=== PATIENT | male | born 1960 | race Two or more races ===

== ENCOUNTER 2018-01-24 19:09 | Emergency (ER) | payer OTHER ==
[~2018-01-24] VITALS: Ht 177.8 cm; Wt 65.0 kg
[2018-01-24 19:12] VITALS: BP 108/76
[2018-01-24] MEDS ORDERED: SODIUM CHLORIDE 0.9% 1,000 ML IV ONE (19:47)
== END 2018-01-24 20:50 | disposition left against medical advice (07) ==
LOC: ER 19:12
DX: Z53.21 Procedure and treatment not carried out due to patient leaving prior to being seen by health care provider (principal)
CPT/HCPCS: 99283; J7030

== ENCOUNTER 2018-04-25 18:23 | Inpatient (IN) | payer OTHER ==
[~2018-04-25] VITALS: Ht 172.7 cm; Wt 49.4 kg
[2018-04-25] MEDS ORDERED: SODIUM CHLORIDE 0.9% 1000ML BAG (SEPSIS BOLUS) IV ONE (19:30)
[2018-04-25] MEDS ORDERED: FOLIC ACID 1 MG, THIAMINE HCL 100 MG, MVI, ADULT NO.1 10 ML in DEXTROSE 5% WATER 1,000 ML IV ONE ×4 (19:30)
[2018-04-25] MEDS ORDERED: LEVOFLOXACIN 750MG PREMIX 150 ML IV ONE (19:30)
[2018-04-25] MEDS ORDERED: LORAZEPAM 2MG/ML CPJ IV ONE (19:30)
[2018-04-25] MEDS ORDERED: ACETAMINOPHEN 325MG TABLET PO ONE (19:30)
[2018-04-25] MEDS ORDERED: ACETAMINOPHEN 500MG TABLET PO NR (19:45)
[2018-04-25 19:51] LABS: HEMATOCRIT. 40.5 % (42.0-52.0); MEAN CORPUSCULAR VOLUME 95.6 fL (80.0-94.0); MEAN PLATELET VOLUME 10.1 fl (7.4-10.4); PLATELET 131 x1000/uL (130-400); RED BLOOD CELL COUNT 4.23 mill/uL (4.7-6.1); RED CELL DISTRIBUTION WIDTH 13.7 % (11.6-14.6)
[2018-04-25 19:56] LABS: CHLORIDE 87 mEq/L (98-107)
[2018-04-25 20:00] LABS: INR 1.1; PARTIAL THROMBOPLASTIN TIME 30.1 sec (23.4-31.0)
[2018-04-25 20:02] LABS: ETHANOL BLOOD < 10 mg/dL
[2018-04-25 20:56] LABS: PLATELET ESTIMATE NORMAL
[2018-04-25 21:13] LABS: CLARITY URINE CLOUDY (CLEAR); COLOR URINE YELLOW (YELLOW); KETONES URINE TRACE (NEGATIVE); LEUKOCYTE ESTERASE URINE 2+ (NEGATIVE); NITRITE URINE NEGATIVE (NEGATIVE); OCCULT BLOOD URINE 3+ (NEGATIVE); PROTEIN URINE 2+ (NEGATIVE); UROBILINOGEN URINE 0.2 E.U./dL (0.2-1.0)
[2018-04-25 21:46] LABS: METHADONE URINE SCREEN NEGATIVE (NEGATIVE); OPIATES URINE SCREEN NEGATIVE (NEGATIVE)
[2018-04-25 21:47] LABS: *AMPHETAMINES SCREEN URINE NEGATIVE (NEGATIVE); *BARBITURATES SCREEN URINE NEGATIVE (NEGATIVE); *BENZODIAZEPINES SCREEN URINE NEGATIVE (NEGATIVE); *COCAINE SCREEN URINE NEGATIVE (NEGATIVE); CANNABINOID URINE SCREEN NEGATIVE (NEGATIVE); PHENCYCLIDINE URINE SCREEN NEGATIVE (NEGATIVE)
[2018-04-25 23:44] VITALS: BP 111/77
[2018-04-25 23:46] VITALS: BP 111/77
[2018-04-26] MEDS ORDERED: ONDANSETRON HCL 4MG/2ML INJ IV PRN (00:45)
[2018-04-26] MEDS ORDERED: LORAZEPAM 2MG/ML CPJ IV PRN (00:45)
[2018-04-26] MEDS ORDERED: PIPERACILLIN/TAZ 3.375G PREMIX 50 ML IV SCH (03:00)
[2018-04-26] MEDS: PIPERACILLIN/TAZ 2.25G PREMIX 50 ML IV SCH ×4 (03:23→21:16)
[2018-04-26] MEDS: DEXT 5%/0.9% NACL 1,000 ML IV SCH ×3 (03:23→21:16)
[2018-04-26 04:00] VITALS: BP 98/65
[2018-04-26 07:30] VITALS: BP_SYST 100; BP_SYST 107; BP_SYST 118; BP_DIAS 73; BP_DIAS 79; BP_DIAS 81
[2018-04-26 07:34] LABS: HEMATOCRIT. 36.2 % (42.0-52.0); HEMOGLOBIN. 12.3 g/dL (14.0-18.0); MEAN CORPUSCULAR HEMOGLOBIN 32.4 pg (28.0-32.0); MEAN CORPUSCULAR VOLUME 95.4 fL (80.0-94.0); MEAN PLATELET VOLUME 8.6 fl (7.4-10.4); PLATELET 54 x1000/uL (130-400); RED BLOOD CELL COUNT 3.79 mill/uL (4.7-6.1); RED CELL DISTRIBUTION WIDTH 13.8 % (11.6-14.6)
[2018-04-26 08:00] VITALS: BP_SYST 100; BP_SYST 107; BP_SYST 118; BP_DIAS 73; BP_DIAS 79; BP_DIAS 81
[2018-04-26] MEDS: THIAMINE HCL 100MG TABLET PO SCH ×2 (08:37→17:28)
[2018-04-26] MEDS: ACETAMINOPHEN 325MG TABLET PO PRN (08:37)
[2018-04-26] MEDS: PANTOPRAZOLE SODIUM 40 MG/VIAL IV SCH (08:37)
[2018-04-26 10:02] LABS: PLATELET ESTIMATE MARKEDLY DECREASED
[2018-04-26 12:00] VITALS: BP 104/72
[2018-04-26] MEDS ORDERED: VANCOMYCIN 1 G PREMIX 200 ML IV NR (13:00)
[2018-04-26] MEDS: NICOTINE 7MG PATCH TD SCH (13:42)
[2018-04-26 16:00] VITALS: BP 129/82
[2018-04-26] MEDS: CHLORDIAZEPOXIDE 25MG CAPSULE PO SCH ×2 (17:28→23:32)
[2018-04-26] MEDS: MULTIVITAMINS,THER W-MINERALS TABLET PO SCH (17:28)
[2018-04-26] MEDS ORDERED: LORAZEPAM 2MG/ML CPJ IV NR (18:13)
[2018-04-26 20:00] VITALS: BP_SYST 102; BP_SYST 99; BP_DIAS 68; BP_DIAS 71
[2018-04-26 20:57] LABS: T4 FREE 1.4 ng/dL (0.76-1.46)
[2018-04-26 21:12] LABS: HEPATITIS B SURFACE ANTIGEN NEGATIVE
[2018-04-26 21:21] LABS: FERRITIN 1569 ng/mL (22-322)
[2018-04-26 21:42] LABS: HEPATITIS A AB IGM NEGATIVE (NEGATIVE)
[2018-04-27] VITALS (7 sets, daily range): BP systolic 96–128; BP diastolic 68–85
[2018-04-27] MEDS ORDERED: VANCOMYCIN 500 MG PREMIX 100 ML IV SCH (01:00)
[2018-04-27] MEDS: PIPERACILLIN/TAZ 2.25G PREMIX 50 ML IV SCH ×3 (02:44→14:42)
[2018-04-27] MEDS ORDERED: VANCOMYCIN 750 MG PREMIX 150 ML IV SCH (06:00)
[2018-04-27] MEDS: CHLORDIAZEPOXIDE 25MG CAPSULE PO SCH ×3 (06:31→21:19)
[2018-04-27 07:10] LABS: HEMATOCRIT 34.6 % (42.0-52.0); HEMOGLOBIN 11.8 g/dL (14.0-18.0); MEAN CORPUSCULAR HEMOGLOBIN 32.3 pg (28.0-32.0); MEAN CORPUSCULAR VOLUME 94.3 fL (80.0-94.0); PLATELET 55 x1000/uL (130-400); RED BLOOD CELL COUNT 3.67 mill/uL (4.7-6.1); RED CELL DISTRIBUTION WIDTH 13.8 % (11.6-14.6)
[2018-04-27] MEDS: DEXT 5%/0.9% NACL 1,000 ML IV SCH ×2 (09:12→13:36)
[2018-04-27] MEDS: PANTOPRAZOLE SODIUM 40 MG/VIAL IV SCH (09:13)
[2018-04-27] MEDS: MULTIVITAMINS,THER W-MINERALS TABLET PO SCH (09:13)
[2018-04-27] MEDS: NICOTINE 7MG PATCH TD SCH (09:13)
[2018-04-27] MEDS: FOLIC ACID 1MG TABLET PO SCH (09:13)
[2018-04-27] MEDS: THIAMINE HCL 100MG TABLET PO SCH (09:13)
[2018-04-27] MEDS: POTASSIUM CHLORIDE INJ 40 MEQ in DEXT 5% WATER 500 ML IV NR ×2 (13:33→14:48)
[2018-04-27] MEDS ORDERED: LEVOFLOXACIN 500MG PREMIX 100 ML IV SCH (15:45)
[2018-04-27] MEDS ORDERED: LEVOFLOXACIN 500MG PREMIX 100 ML IV NR (18:00)
[2018-04-28] VITALS: BP_SYST 115; BP_SYST 129; BP_DIAS 75; BP_DIAS 76
[2018-04-28] MEDS: DEXT 5%/0.9% NACL 1,000 ML IV SCH ×3 (02:40→17:44)
[2018-04-28 04:00] VITALS: BP 150/84
[2018-04-28] MEDS: CHLORDIAZEPOXIDE 25MG CAPSULE PO SCH ×3 (05:03→21:19)
[2018-04-28 07:48] LABS: HEMATOCRIT. 35.3 % (42.0-52.0); HEMOGLOBIN. 12.2 g/dL (14.0-18.0); MEAN CORPUSCULAR HEMOGLOBIN 32.8 pg (28.0-32.0); MEAN CORPUSCULAR VOLUME 94.9 fL (80.0-94.0); MEAN PLATELET VOLUME 9.5 fl (7.4-10.4); PLATELET 73 x1000/uL (130-400); RED BLOOD CELL COUNT 3.72 mill/uL (4.7-6.1); RED CELL DISTRIBUTION WIDTH 13.9 % (11.6-14.6)
[2018-04-28 08:00] VITALS: BP_SYST 120; BP_SYST 123; BP_SYST 129; BP_DIAS 80; BP_DIAS 82; BP_DIAS 84
[2018-04-28] MEDS: PANTOPRAZOLE SODIUM 40 MG/VIAL IV SCH (08:28)
[2018-04-28] MEDS: FERROUS SULFATE 325MG TABLET PO SCH ×3 (08:29→17:43)
[2018-04-28] MEDS: MULTIVITAMINS,THER W-MINERALS TABLET PO SCH (08:29)
[2018-04-28] MEDS: THIAMINE HCL 100MG TABLET PO SCH (08:29)
[2018-04-28] MEDS: NICOTINE 7MG PATCH TD SCH (08:29)
[2018-04-28] MEDS: FOLIC ACID 1MG TABLET PO SCH (08:29)
[2018-04-28 09:10] LABS: CHLORIDE 106 mEq/L (98-107)
[2018-04-28 11:51] LABS: PLATELET ESTIMATE DECREASED
[2018-04-28 12:00] VITALS: BP 127/80
[2018-04-28] MEDS ORDERED: POTASSIUM CHLORIDE 20MEQ TABLET SR PO NR (12:15)
[2018-04-28] MEDS: ACETAMINOPHEN 325MG TABLET PO PRN (12:34)
[2018-04-28 16:00] VITALS: BP 128/84
[2018-04-28] MEDS ORDERED: LORAZEPAM 2MG/ML CPJ IV PRN (16:45)
[2018-04-28] MEDS: LEVOFLOXACIN 250MG PREMIX 50 ML IV SCH (17:44)
[2018-04-28] MEDS: HYDROCODONE/ACETAMINOPHEN 5/325MG TABLET PO PRN (21:20)
[2018-04-28 23:38] LABS: VITAMIN B12 SERUM 1172 pg/mL (211-911)
[2018-04-29] VITALS: BP 113/73
[2018-04-29 04:00] VITALS: BP 154/91
[2018-04-29] MEDS: DEXT 5%/0.9% NACL 1,000 ML IV SCH (05:00)
[2018-04-29] MEDS: CHLORDIAZEPOXIDE 25MG CAPSULE PO SCH ×2 (05:00→13:59)
[2018-04-29 07:17] LABS: HEMATOCRIT 37.6 % (42.0-52.0); HEMOGLOBIN 12.7 g/dL (14.0-18.0); MEAN CORPUSCULAR HEMOGLOBIN 32.2 pg (28.0-32.0); MEAN CORPUSCULAR VOLUME 95.2 fL (80.0-94.0); PLATELET 111 x1000/uL (130-400); RED BLOOD CELL COUNT 3.95 mill/uL (4.7-6.1); RED CELL DISTRIBUTION WIDTH 14.3 % (11.6-14.6)
[2018-04-29 07:20] LABS: CHLORIDE 110 mEq/L (98-107)
[2018-04-29 08:00] VITALS: BP_SYST 128; BP_SYST 132; BP_DIAS 90; BP_DIAS 92
[2018-04-29] MEDS: FERROUS SULFATE 325MG TABLET PO SCH ×3 (08:55→18:46)
[2018-04-29] MEDS: FOLIC ACID 1MG TABLET PO SCH (08:55)
[2018-04-29] MEDS: THIAMINE HCL 100MG TABLET PO SCH (08:55)
[2018-04-29] MEDS: MULTIVITAMINS,THER W-MINERALS TABLET PO SCH (08:55)
[2018-04-29] MEDS: NICOTINE 7MG PATCH TD SCH (08:56)
[2018-04-29] MEDS: PANTOPRAZOLE SODIUM 40 MG/VIAL IV SCH (09:32)
[2018-04-29 12:00] VITALS: BP 132/80
[2018-04-29] MEDS: HYDROCODONE/ACETAMINOPHEN 5/325MG TABLET PO PRN (15:48)
[2018-04-29 16:00] VITALS: BP 145/85
[2018-04-29] MEDS: LEVOFLOXACIN 250MG PREMIX 50 ML IV SCH (17:24)
== END 2018-04-29 19:03 | DRG 720 ==
LOC: ER 18:23 → 7WST 22:11 → EDBEDREQ 22:14 → EDBEDREQTM 22:14 → ENRESERV 22:29
PROVIDERS: ADMIT Internal Medicine; ATTEND Internal Medicine
DX: A41.51 Sepsis due to Escherichia coli [E. coli] (principal); I50.43 Acute on chronic combined systolic (congestive) and diastolic (congestive) heart failure; E43 Unspecified severe protein-calorie malnutrition; K85.20 Alcohol induced acute pancreatitis without necrosis or infection; N17.9 Acute kidney failure, unspecified; D69.6 Thrombocytopenia, unspecified; E88.09 Other disorders of plasma-protein metabolism, not elsewhere classified; K86.0 Alcohol-induced chronic pancreatitis; F10.239 Alcohol dependence with withdrawal, unspecified; E86.0 Dehydration; R26.2 Difficulty in walking, not elsewhere classified; M54.5 Low back pain; N39.0 Urinary tract infection, site not specified; D50.9 Iron deficiency anemia, unspecified; E87.6 Hypokalemia; F10.229 Alcohol dependence with intoxication, unspecified; F17.210 Nicotine dependence, cigarettes, uncomplicated; G89.29 Other chronic pain; Z91.19 Patient's noncompliance with other medical treatment and regimen; Z71.6 Tobacco abuse counseling; Z68.1 Body mass index [BMI] 19.9 or less, adult
CPT/HCPCS: 36415; 71045; 72148; 76700; 80048; 80061; 80076; 80305; 82140; 82607; 82728; 83036; 83540; 83550; 83605; 83880; 84145; 84439; 84443; 84484; 85027; 86705; 86709; 86803; 87077; 87186; 87340; 93005; 93306; 93970; 96365; 96366; 96368; 96375; 97161; 97530; 99291; 99406; C9113; G0482; J1956; J2060; J2543; J3370; J3411; J3480; J3490; J7030; J7042; J7050; J7060; J7070